=== PATIENT | female | born 1965 | race Caucasian/White ===

== ENCOUNTER 2018-06-26 10:15 | Emergency (ER) | payer SELFPAY ==
[~2018-06-26] VITALS: Ht 152.4 cm; Wt 68.9 kg
[2018-06-26 10:33] VITALS: Ht 152.4 cm; Wt 68.9 kg
[2018-06-26 13:04] VITALS: BP 152/89
== END 2018-06-26 13:04 | disposition home or self-care (01) ==
LOC: ED 10:15
DX: M54.41 Lumbago with sciatica, right side (principal); Z98.890 Other specified postprocedural states
CPT/HCPCS: J1885